=== PATIENT | female | born 1995 | race Caucasian/White ===

== ENCOUNTER 2022-12-30 13:32 | Outpatient (CLI) | payer OTHER | END 2022-12-30 13:33 | disposition home or self-care (01) | LOC: DTY/OP 13:32 | PROVIDERS: ATTEND Physician Assistant | DX: R63.5 Abnormal weight gain (principal) | CPT/HCPCS: 97802 ==

== ENCOUNTER 2023-05-23 17:00 | Outpatient (CLI) | payer BC | END 2023-05-23 17:01 | disposition home or self-care (01) | LOC: SLEEPLAB 17:00 | PROVIDERS: ATTEND Physician Assistant | DX: G47.33 Obstructive sleep apnea (adult) (pediatric) (principal); G47.61 Periodic limb movement disorder; F41.8 Other specified anxiety disorders; R53.83 Other fatigue; R40.0 Somnolence; R51.9 Headache, unspecified; R06.83 Snoring; R35.1 Nocturia; E66.9 Obesity, unspecified; Z68.42 Body mass index [BMI] 45.0-49.9, adult | CPT/HCPCS: 95810 ==